=== PATIENT | female | born 1980 | race Caucasian/White ===

== ENCOUNTER 2017-07-24 11:10 | Emergency (ER) | payer MEDICARE, MEDICAID ==
[~2017-07-24] VITALS: Ht 162.6 cm; Wt 77.1 kg
[2017-07-24 11:21] VITALS: BP_SYST 120
--- NOTE | 2017-07-24 11:42 | NUR ---
Patient to ER bed 02 to gown for evaluation. Side rails up. Report given to Jaleel.
[2017-07-24] MEDS ORDERED: ALBUTEROL SULFATE 0.083% 2.5 MG/3 ML VIAL.NEB INH ONE (11:45)
[2017-07-24] MEDS ORDERED: methylPREDNISolone SOD SUCC/PF 62.5 MG/ML VIAL IM ONE (11:45)
[2017-07-24] MEDS ORDERED: IPRATROPIUM BROM 0.5 MG/2.5 ML VIAL.NEB (ATROVENT) INH ONE (11:45)
--- NOTE | 2017-07-24 11:45 | NUR ---
PT PRESENST TO ED C/O ASTHMA EXACERBATION WITH H/O ASTHMA,HTN AND SEIZURES.
--- NOTE | 2017-07-24 11:46 | NUR ---
ER at bedside examining patient.
--- NOTE | 2017-07-24 11:50 | NUR ---
RT AT BEDSIDE FOR TX. PT TOLERATED IM FOR SOLUMEDROL.
--- NOTE | 2017-07-24 12:15 | NUR ---
PT REPORTS EASE IN RESP EFFORT. PT TO BE DISCHARGED.
--- NOTE | 2017-07-24 12:40 | NUR ---
Patient given written and verbal discharge instructions and verbalizes understanding. ER MD discussed with patient the results and treatment provided. Patient in stable condition. ID arm band removed. Rx of ALBUTEROL INH,PREDNISONE given. Patient educated on pain management and to follow up with PMD. Pain Scale 0 Opportunity for questions provided and answered.
[2017-07-24 12:46] VITALS: BP_SYST 122
== END 2017-07-24 12:46 | disposition home or self-care (01) ==
LOC: SED 11:10
DX: J45.901 Unspecified asthma with (acute) exacerbation (principal)
CPT/HCPCS: 94640; 96372; 99283; J2930

== ENCOUNTER 2017-12-05 12:07 | Emergency (ER) | payer MEDICARE, MEDICAID ==
[~2017-12-05] VITALS: Ht 160 cm; Wt 68.0 kg
[2017-12-05 12:14] VITALS: BP_SYST 126
--- NOTE | 2017-12-05 12:26 | NUR ---
Patient to ER bed 04 to gown for evaluation. Side rails up.
--- NOTE | 2017-12-05 12:30 | NUR ---
Pt brought by self, A&Ox4, pt c/o SOB, cough and cold symptoms x 2 weeks, Hx of asthma, pt had a breathing tx before leaving home, skin pink warm, cap refill <3, speaking in full sentences.
[2017-12-05] MEDS: ALBUTEROL SULFATE 0.083% 2.5 MG/3 ML VIAL.NEB IH ONE (12:33)
[2017-12-05] MEDS: IPRATROPIUM BROM 0.5 MG/2.5 ML VIAL.NEB (ATROVENT) IH ONE (12:34)
--- NOTE | 2017-12-05 12:40 | NUR ---
Dr Johnson at bedside examining patient
[2017-12-05] MEDS: PREDNISONE 20 MG TABLET PO ONE (12:57)
--- NOTE | 2017-12-05 13:25 | NUR ---
Patient given written and verbal discharge instructions and verbalizes understanding. ER MD discussed with patient the results and treatment provided. Patient in stable condition. ID arm band removed. Rx of Prednisone and Albuterol inhalor given. Patient educated on pain management and to follow up with PMD. Pain Scale 0/10. Opportunity for questions provided and answered.
[2017-12-05 13:26] VITALS: BP_SYST 126
== END 2017-12-05 13:25 | disposition home or self-care (01) ==
LOC: SED 12:07
DX: J45.909 Unspecified asthma, uncomplicated (principal); Z90.89 Acquired absence of other organs; Z90.49 Acquired absence of other specified parts of digestive tract; Z90.710 Acquired absence of both cervix and uterus
CPT/HCPCS: 94640; 99283; J7512